=== PATIENT | female | born 1965 | race Caucasian/White ===

== ENCOUNTER 2022-07-15 10:31 | Inpatient (IN) | payer BC, SELFPAY ==
[2022-07-15] VITALS (16 sets, daily range): BP systolic 117–154; BP diastolic 58–85; PULSE 92–127; RESP 16–20; TEMP 36.9–37.1; O2SAT 91–98; BMI 32.8; BMI 34.0
--- NOTE | 2022-07-15 11:15 | HMH.EDGENADL ---
Discharge Plan Disposition Chief Complaint: Shortness of Breath/Dyspnea Discharge ED Provider: Usama Rachel General Adult HPI General Chief complaint: Shortness of Breath/Dyspnea Stated complaint: feet and stomach swelling,can't eat Time Seen by Provider: 07/15/22 11:05 Mode of Arrival: Ambulatory Source of Information: Patient Limitations: No Limitations Description of Symptoms (Recalled from ER Triage Doc. by RN): Pt c/o increased SOA (especially with excertion), abd swelling, umbilical hernia, and BLE swelling that has all been progressing for quite some time . History of Present Illness HPI narrative: Patient presents today complaining principally of generalized swelling including abdominal distention. She states this has been ongoing for several months however is gotten worse over the last few days and was at work today and became too fatigued and short of air due to the swelling. She complains of abdominal discomfort as well as back discomfort. Pt. describes symptoms as moderate and without exacerbating or alleviating factors. Is been no fever no new cough she is a smoker. She also drinks daily and estimates approximate 1/5 of alcohol intake per day. Related Data Home Medications Medication Instructions Recorded Confirmed No Known Home Medications 07/15/22 07/15/22 Allergies Allergy/AdvReac Type Severity Reaction Status Date / Time No Known Allergies [facility] Ver[facility] 07/15/22 10:57 [facility] Social History Smoking Status: Current every day smoker alcohol intake: current current occupational status: employed Travel in the last 8 weeks: None ROS Obtained: Yes All systems reviewed & no additional complaints except as documented Constitutional Constitutional: Reports system reviewed and no additional complaints, except as documented Cardiovascular Cardiovascular: Reports system reviewed and no additional complaints, except as documented and Reports dyspnea Respiratory Respiratory: Reports cough and Reports dyspnea Gastrointestinal Gastrointestingal: Reports system reviewed and no additional complaints, except as documented Neurologic Neurologic: Reports system reviewed and no additional complaints, except as documented Physical Exam General General appearance: alert and in no apparent distress Head Head exam: atraumatic Eye Eye exam: Present jaundice ENT ENT exam: Present normal exam Neck Neck exam: Present normal inspection Chest Chest inspection: Present normal inspection Respiratory Respiratory exam: Present other (Mildly labored respirations) Cardiovascular Cardiovascular exam: Present normal rhythm and tachycardia Abdominal Exam Abdominal exam: Present soft and distention; Absent tenderness Back Exam Back exam: Present normal inspection Neurological Exam Neurological exam: Present alert and oriented X3 Skin Skin exam: Present warm and dry Lymphatic Lymphatic Findings: no adenopathy Medical Decision Making Medical Records Medical records reviewed: Yes I reviewed the patient's medical records. Pan Inquiry Pt receiving controlled substance: Yes Pan was queried for this patient: Yes Risks and benefits of using a controlled substance: were discussed with pt by me Vital Signs: 07/15/22 10:32 07/15/22 11:01 07/15/22 12:30 Temperature 98.4 F Temperature Source Oral Pulse Rate 126 H 112 H Pulse Rate [Right Radial] 127 H Respiratory Rate 20 20 Blood Pressure 119/68 127/74 Blood Pressure [Left Arm] 131/73 Blood Pressure Mean 85 86 Blood Pressure Mean [Left Arm] 92 Blood Pressure Source [Left Arm] Automatic Cuff Blood Pressure Position [Left Arm] Sitting 02 Sat by Pulse Oximetry 92 L 91 L 92 L Oxygen Delivery Method Room Air Nasal Cannula Oxygen Flow Rate (LPM) 2 07/15/22 13:00 07/15/22 13:30 07/15/22 14:00 Temperature Temperature Source Pulse Rate 92 H 96 H 124 H Pulse Rate [Right Radial]
--- NOTE | 2022-07-15 11:29 | PC.NURSE ---
pt up to the bathroom
--- NOTE | 2022-07-15 11:40 | PC.NURSE ---
pt returned from bathroom ,urine sample collected and sent to lab
--- NOTE | 2022-07-15 11:43 | CT_ITS ---
FINAL REPORT CLINICAL HISTORY: swelling FINDINGS: CT OF THE ABDOMEN AND PELVIS WITH CONTRAST Axial CT images of the abdomen and pelvis were obtained after the administration of IV contrast. Coronal reformatted images were also obtained and reviewed.This study was performed with techniques to keep radiation doses as low as reasonably achievable (ALARA). Individualized dose reduction techniques using automated exposure control or adjustment of mA and/or kV according to the patient's size were employed. Abdomen: There is mild atelectasis or scarring in the lung bases. The heart is normal in size. The liver is very heterogeneous. It is uncertain if this represents areas of fatty infiltration or, less likely, an infiltrating mass or masses. There are stones or sludge in the gallbladder with gallbladder wall thickening. The spleen enlarged measuring 14.6 cm in length. No adrenal mass is present. The pancreas has an unremarkable appearance. The kidneys are normal, without evidence of mass or hydronephrosis. The aorta is normal in caliber. There is no adenopathy. There is a moderate amount of ascites. Pelvis: The appendix is normal. There are areas of colonic wall thickening which may represent edema or colitis. There is a small periumbilical hernia containing fluid. There is a moderate amount of ascites in the pelvis. There is a small subserosal calcified uterine fibroid. There is moderate anasarca. The urinary bladder is unremarkable. There is no adenopathy. There is no evidence of bowel obstruction. IMPRESSION: Abnormal liver favoring heterogeneous fatty infiltration over infiltrated mass or masses. If indicated, liver MRI could further evaluate. Moderate ascites and moderate anasarca. Areas of colon wall thickening, edema versus colitis. Stones or sludge within the gallbladder, consider right upper quadrant ultrasound. Splenomegaly. Reviewed, Interpreted and Dictated by Parvez Somers III, MD Transcribed by Malia John Authenticated and [facility]
--- NOTE | 2022-07-15 11:55 | XR_ITS ---
FINAL REPORT CLINICAL HISTORY: SOB FINDINGS: A single view of the chest was obtained. The heart is normal in size. The mediastinum is unremarkable. There are bilateral pulmonary opacities worrisome for bilateral pneumonia. There is no pleural effusion. There is no pneumothorax. There is no acute osseous abnormality. IMPRESSION: Bilateral pulmonary opacities worrisome for bilateral pneumonia. Reviewed, Interpreted and Dictated by Parvez Somers III, MD Transcribed by Lesli Hernandez Authenticated and [facility]
[2022-07-15 12:00] LABS: Chloride 88 mmol/L (98-107); Potassium 4.3 mmoL/L (3.5-5.1); Sodium 136 mmol/L (136-145)
[2022-07-15 12:03] LABS: Alanine Aminotransferase 63 U/L (12-78); Albumin Level 3.3 g/dl (3.5-5.0); Albumin/Globulin Ratio 0.8 (1.1-1.8); Alkaline Phosphatase 268 U/L (38-126); Anion Gap 20.3 mEq/L (5-15); Aspartate Amino Transferase 252 U/L (14-36); Basophils # 0.1 K/mm3 (0-0.2); Bilirubin,Total 10.7 mg/dl (0.2-1.3); Blood Urea Nitrogen 9 mg/dl (7-17); Calcium 7.8 mg/dl (8.4-10.2); Carbon Dioxide 32 mmol/L (22.0-30.0); Creatinine Clearance Estimated 189 mL/min (50-200); Eosinophils # 0.1 K/mm3 (0.0-0.4); Eosinophils % 1.4 % (0.1-12.0); Estimated Glomerular Filt Rate 128 ml/min (>60); GFR (African American) 154 ML/MIN (>60); Glucose 139 mg/dl (74-100); Lymphocytes # 1.1 K/mm3 (0.7-4.5); Lymphocytes % 11.8 % (10-50); Mean Corpuscular HGB Conc 32.4 g/dL (31.8-35.4); Mean Corpuscular Volume 132.4 fl (81-99); Mean Platelet Volume 8.8 fl (7.4-10.4); Monocytes # 0.5 K/mm3 (0.1-1.0); Monocytes % 4.7 % (1.7-9.3); Neutrophils # 7.8 K/mm3 (1.8-7.8); Neutrophils % 81.2 % (37.0-80.0); Platelet Count 159 K/mm3 (142-424); Red Blood Count 2.56 M/mm3 (4.20-5.40); Red Cell Distribution Width 14.3 % (11.5-17.5); Total Protein,Serum 7.3 g/dl (6.3-8.2); White Blood Count 9.6 K/mm3 (4.8-10.8)
[2022-07-15 12:06] LABS: INR 1.39 (0.9-1.1); Prothrombin Time 14.7 seconds (10.1-12.5)
[2022-07-15 12:09] LABS: Microscopic, Urine URINE MICROSCOPIC (MICROSCOPIC)
[2022-07-15 12:11] LABS: Appearance,Urine TURBID (Clear); Blood, Urine Negative (Negative); Glucose,Urine (UA) TRACE (Negative); Ketones,Urine TRACE (Negative); Leukocyte Esterase,Urine TRACE (Negative); Nitrate,Urine POSITIVE (Negative); PH,Urine 5.5 (5.0-8.5); Protein,Urine 1+ (Negative); Urobilinogen,Urine >=8.0 EU/dl (0.2)
[2022-07-15 12:12] LABS: Ammonia 70 umol/L (9-30)
--- NOTE | 2022-07-15 12:15 | PC.NURSE ---
blanket given to pt for blanket
[2022-07-15 12:16] LABS: Bilirubin,Direct 8.1 mg/dl (0.0-0.4); Creatine Kinase MB 0.4 ng/ml (0.0-2.03); Lipase 25 U/L (23-300)
[2022-07-15 12:18] LABS: Troponin I < 0.01 ng/ml (0.00-0.034)
[2022-07-15 12:19] LABS: Bilirubin,Urine 3+ (Negative); Color,Urine AMBER (Yellow)
[2022-07-15 12:28] LABS: Bacteria,Urine 4+ /lpf; RBC,Urine Occasional #/hpf (0-3)
[2022-07-15 12:33] LABS: Coronavirus 19, PCR Not Detected (NotDetected); Influenza A, PCR Not Detected (NotDetected); Influenza B, PCR Not Detected (NotDetected)
--- NOTE | 2022-07-15 13:40 | PC.NURSE ---
pt resting in bed with no complaints at this time.
--- NOTE | 2022-07-15 13:53 | PC.NURSE ---
Pt returning from bathroom at this time.
[2022-07-15 14:16] LABS: Creatine Kinase 42 U/L (30-135)
[2022-07-15 14:46] LABS: Lactic Acid 5.3 mmol/L (0.7-2.1)
[2022-07-15 15:50] LABS: Reflex Lactic Add Lactic Reflex
--- NOTE | 2022-07-15 15:51 | PC.NURSE ---
[facility] called, they requested images be power shared and then would return call
--- NOTE | 2022-07-15 16:19 | PC.NURSE ---
Dr Rachel speaking with [facility]
[2022-07-15 16:27] LABS: Lactic Acid Follow Up (RFLX 1) 4.6 mmol/L (0.7-2.1)
--- NOTE | 2022-07-15 16:30 | PC.NURSE ---
aware of lactic
--- NOTE | 2022-07-15 16:31 | PC.NURSE ---
[facility] called for transfer, they are to call back
--- NOTE | 2022-07-15 16:32 | PC.NURSE ---
[facility] placed pt on waiting list
--- NOTE | 2022-07-15 16:51 | PC.NURSE ---
[facility] put pt on waiting list also.
[2022-07-15 18:05] LABS: Reflex Lactic (2 hrs) Add Lactic Reflex
--- NOTE | 2022-07-15 18:08 | PC.NURSE ---
Dr Rachel speaking with Dr Masterson
--- NOTE | 2022-07-15 18:12 | PC.NURSE ---
transmission supervisor called for admission
--- NOTE | 2022-07-15 18:28 | PC.NURSE ---
Attempted to call report to 2nd floor. Spoke with Liz Mijares. Was told that they will have to call back.
--- NOTE | 2022-07-15 18:54 | PC.NURSE ---
Called report to Liz Mijares
[2022-07-15 18:59] LABS: Lactic Acid Follow up (RFLX 2) 3.5 mmol/L (0.7-2.1)
--- NOTE | 2022-07-15 19:12 | PC.NURSE ---
Pt still in ED, report given to Estela Causey RN.
--- NOTE | 2022-07-15 19:46 | PC.NURSE ---
PT ARRIVED TO FLOOR VIA WHEELCHAIR AT THIS TIME
[2022-07-16] VITALS (12 sets, daily range): BP systolic 117–143; BP diastolic 66–77; PULSE 94–124; RESP 17–20; TEMP 36.4–37.1; O2SAT 91–99; BMI 34.0
--- NOTE | 2022-07-16 06:07 | PC.NURSE ---
pt has rested since arriving to floor, was placed on 2L NC while resting with O2 sats 91-95%, rhonchi and wheezing heard on auscultation, pt does desat with exertion, pt has also been tachy t/o shift with HR 100-110, no complaints of SOA, pt has complained of pain in her back, home medication locked in drawer
--- NOTE | 2022-07-16 07:42 | EXP.PHA.VTE ---
[facility] Pharmacy VTE Monitoring Patient Demographics Admission date: 07/15/22 Report Date: 07/16/22 Time: 07:42 Patient Allergies No Known Allergies Allergy (Verified 07/15/22 20:14) Height: 1.7 m Weight: 98.458 kg Current Active Problems (Updated 07/15/22 @ 20:39 by Bharati Causey RN) Pneumonia (Acute) VTE Risk Labs: VTE Related Lab Results Hgb 11.0 g/dL (12.2-16.2) L 07/15/22 11:20 Hct 34.0 % (37.0-47.0) L 07/15/22 11:20 Plt Count 159 K/mm3 (142-424) 07/15/22 11:20 PT 14.7 seconds (10.1-12.5) H 07/15/22 11:20 INR 1.39 (0.9-1.1) H 07/15/22 11:20 BUN 9 mg/dl (7-17) 07/15/22 11:20 Creatinine 0.50 mg/dl (0.52-1.04) L 07/15/22 11:20 Estimated Creat Clear 189 mL/min (50-200) 07/15/22 11:20 VTE Score: 8 VTE Risk Level: Moderate Risk Clinical Trial Participant: No Prophylaxis VTE Prophylaxis Ordered?: Yes Types of VTE Prophylaxis: TEDS Knee High
--- NOTE | 2022-07-16 07:43 | HMH.PHAINT1 ---
Pharmacy Intervention Comments: HOME MEDICATION LIST (SUBUTEX DOSE) VERIFIED USING OUTPATIENT PHARMACY LIST AND CARLA REPORT
--- NOTE | 2022-07-16 08:49 | EXP.HP ---
History of Present Illness *Admission Date: 07/15/22 *Reason for visit:: Abdominal pain *History of present illness: Ms. Graham is a 56-year-old female who has not been feeling well for the last several months. She is continuing to work. 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 She was also experiencing shortness of breath. Patient was fatigued as well. She has a periodic cough. She denies having any other upper respiratory symptoms and fever. She experiences some constipation. She has had nausea with occasional vomiting and on a daily basis. She has noticed some hematemesis and blood in her stool. With evaluation in the emergency room she was noted to be afebrile. She was tachycardic. With an increase of 10 point to 810.7. AST elevated at 252 with an alkaline phosphatase of 268. Lactate was also elevated at 5.3 and is down to 4.6. Ammonia was elevated at 70. She did receive a liter of fluids in the ER. She was started on Rocephin IV and given morphine for pain and Zofran for her nausea. CT of the abdomen/pelvis revealed the following: IMPRESSION: Abnormal liver favoring heterogeneous fatty infiltration over infiltrated mass or masses.? If indicated, liver MRI could further evaluate.? ? Moderate ascites and moderate anasarca. Areas of colon wall thickening, edema versus colitis.? ? Stones or sludge within the gallbladder, consider right upper quadrant ultrasound.? Splenomegaly. Chest x-ray revealed the following: IMPRESSION: Bilateral pulmonary opacities worrisome for bilateral pneumonia. This a.m. patient's main complaint is back pain. States she is somewhat short of breath. She denies chest pain. She is not nauseated at present.. This a.m. labs show a lactate of 3.5. [facility] Medical History (Updated 07/16/22 @ 09:22 by Eliz Yoon APRN) Congestive heart failure COPD (chronic obstructive pulmonary disease) Hypertension Surgical History Hx of tubal ligation Family History (Updated 07/15/22 @ 20:39 by Bharati Causey RN) No significant family history Social History (Updated 07/15/22 @ 20:41 by Bharati Causey RN) Smoking Status: Current every day smoker alcohol intake: current current occupational status: employed Travel in the last 8 weeks: None Review of Systems Constitutional Constitutional: Reports fever(s), Reports frequent falls, Reports headache(s) and Reports poor appetite Eyes Eyes: Reports change in vision ENT Ears, Nose, Mouth, and Throat: Denies otalgia, Denies epistaxis, Reports headache(s) and Denies sore throat *Cardiovascular Cardiovascular: Reports dyspnea, Reports edema and Reports rapid heart rate *Respiratory Respiratory: Reports chest congestion, Reports cough, Reports dyspnea and Denies hemoptysis *Gastrointestinal Gastrointestinal: Reports abdominal pain, Reports hematemesis, Reports hematochezia, Reports nausea and Reports vomiting *Genitourinary Genitourinary: Denies difficulty voiding *Musculoskeletal Musculoskeletal: Reports abnormal gait (Sometimes has to use a walker) and Reports arthralgias *Neurologic Neurologic: Reports abnormal gait (Sometimes has to use a walker), Reports frequent falls, Reports headache(s) and Denies seizure-like activity Meds Home Medications and Allergies Home Medications Medication Instructions Recorded Confirmed Type buprenorphine HCl 8 mg sublingual 18 mg sublingual DAILY drug 07/15/22 07/16/22 History tablet addiction New Prescriptions to Start Prescriptions: Allergies Allergy/AdvReac Type Severity Reaction Status Date / Time No Known Allergies Allergy Verified 07/15/22 20:14 Exam Data for Last 24 hours Vital signs and Labs for Last 24 Hours: Temp Pulse Resp BP Pulse Ox 98.7 F 118 H 17 130/73 99 07/16/22 07:54 07/16/22 07:54 07/16/22 07:54 07/16/22 07:54 07/16/22 07:54
--- NOTE | 2022-07-16 09:25 | US_ITS ---
FINAL REPORT CLINICAL HISTORY: elevated bili; ascites; cirrhosis FINDINGS: Sonographic images of the right upper quadrant were obtained. The pancreas is partially obscured.The liver is somewhat enlarged at 18 cm in length. The liver has a coarsened echotexture that may represent cirrhosis.The gallbladder contains a large amount of sludge with wall thickening and a small amount of Barbara cholecystic fluid.There is no evidence of biliary ductal dilatation.The common duct measures 3 mm. Limited images of the right kidney are unremarkable. There is a moderate amount of ascites in the abdomen and pelvis. IMPRESSION: Large amount of sludge in a wall thickened gallbladder with a small amount of pericholecystic fluid. Moderate ascites. Somewhat enlarged liver with possible cirrhosis. Reviewed, Interpreted and Dictated by Parvez Somers III, MD Transcribed by Luis Enrique Christie Authenticated and . [facility]
--- NOTE | 2022-07-16 11:13 | PC.NURSE ---
Called [facility] to let them know needed sputum
--- NOTE | 2022-07-16 11:44 | PC.NURSE ---
late entry. morning rounds relayed to md that patient subutex order was for 18mg. patient states she was only wanting to take 4mg of it. states she had been weaning down at home and taking 4mg twice a day. md placed order for 8mg tablet. relayed to him patient refusing to take whole tablet. he is aware. patient took the 4mg.
--- NOTE | 2022-07-16 13:09 | PC.NURSE ---
Spoke with DAJA JOLLY from Dr. Gillespie office about pain medication for pt. She is stating that she is having pain in her back and her stomach. Stated that she would call me back once she speaks with the doctor.
--- NOTE | 2022-07-16 14:56 | PC.NURSE ---
Pt is A/Ox4. She has been wither laying in the bed or sitting on the side of the bed all day. She has been tolerating her clear liquid diet well. She complained about her stomach and her back hurting. I called Dr. Masterson and spoke with DAJA waiting for return call.
[2022-07-17] VITALS (13 sets, daily range): BP systolic 122–152; BP diastolic 49–85; PULSE 100–129; RESP 17–18; TEMP 36.6–37.6; O2SAT 86–96; BMI 34.3
--- NOTE | 2022-07-17 04:30 | PC.NURSE ---
Addendum entered by Hanny Asher RN 07/17/22 06:57: PT HAS HAD TWO EPISODES OF INCONTINENCE THIS SHIFT. Original Note: SPOKE WITH TRANSFER CENTER AND GAVE AN UPDATE ON PT. STATED THAT THEY STILL DO NOT HAVE A BED FOR PT AND CANNOT GIVE AN ESTIMATE ON WHEN ONE WOULD BE AVAILABLE.
[2022-07-17 06:47] LABS: MANUAL DIFFERENTIAL MANUAL DIFFERENTIAL (MANUAL DIFF)
[2022-07-17 06:48] LABS: Basophils # 0.1 K/mm3 (0-0.2); Eosinophils # 0.2 K/mm3 (0.0-0.4); Eosinophils % 1.9 % (0.1-12.0); Hematocrit 30.1 % (37.0-47.0); Lymphocytes # 0.8 K/mm3 (0.7-4.5); Lymphocytes % 9.6 % (10-50); Mean Corpuscular HGB Conc 33.2 g/dL (31.8-35.4); Mean Corpuscular Volume 132.3 fl (81-99); Mean Platelet Volume 8.1 fl (7.4-10.4); Monocytes # 0.4 K/mm3 (0.1-1.0); Monocytes % 4.7 % (1.7-9.3); Neutrophils # 7.2 K/mm3 (1.8-7.8); Neutrophils % 82.9 % (37.0-80.0); Platelet Count 162 K/mm3 (142-424); Red Blood Count 2.27 M/mm3 (4.20-5.40); Red Cell Distribution Width 14.3 % (11.5-17.5); White Blood Count 8.7 K/mm3 (4.8-10.8)
[2022-07-17 07:09] LABS: Ammonia 65 umol/L (9-30)
[2022-07-17 07:10] LABS: Alanine Aminotransferase 58 U/L (12-78); Albumin Level 2.7 g/dl (3.5-5.0); Albumin/Globulin Ratio 0.8 (1.1-1.8); Alkaline Phosphatase 227 U/L (38-126); Anion Gap 10.1 mEq/L (5-15); Aspartate Amino Transferase 191 U/L (14-36); Bilirubin,Total 10.6 mg/dl (0.2-1.3); Blood Urea Nitrogen 12 mg/dl (7-17); Calcium 7.8 mg/dl (8.4-10.2); Carbon Dioxide 40 mmol/L (22.0-30.0); Chloride 88 mmol/L (98-107); Creatinine Clearance Estimated 246 mL/min (50-200); Estimated Glomerular Filt Rate 165 ml/min (>60); GFR (African American) 200 ML/MIN (>60); Globulin 3.6 g/dL (1.3-3.2); Glucose 107 mg/dl (74-100); Potassium 4.1 mmoL/L (3.5-5.1); Sodium 134 mmol/L (136-145); Total Protein,Serum 6.3 g/dl (6.3-8.2)
[2022-07-17 07:30] LABS: Eosinophils % 2 % (0-3); Lymphocytes % 14 % (10-50); Monocytes % 5 % (2-9); Neutrophils % 79 % (42-76); Platelet Estimate Normal; Total Cells Counted 100
[2022-07-17 07:31] LABS: Hypochromasia 1+; Macrocytosis 1+
--- NOTE | 2022-07-17 09:09 | EXP.ACUTE.PN ---
Subjective *Date: 07/17/22 *Time: 09:09 Interval history: Patient is not feeling well this morning. She still has shortness of breath and is having pain in her back and her abdomen. She states she cannot get comfortable in the bed. Medical Exam Vital signs and Labs for Last 24 Hours: Temp Pulse Resp BP Pulse Ox 99.7 F H 123 H 18 133/82 96 07/17/22 08:00 07/17/22 08:00 07/17/22 04:00 07/17/22 08:00 07/17/22 08:30 Laboratory Results - last 24 hr 07/15/22 12:05: Urine Color Darshana, Urine Appearance Turbid, Urine pH 5.5, Ur Specific Mccormick 1.020, Urine Protein 1+, Urine Glucose (UA) Trace, Urine Ketones Trace, Urine Blood Negative, Urine Nitrate Positive, Urine Bilirubin 3+ A, Urine Urobilinogen >=8.0, Ur Leukocyte Esterase Trace, Urine RBC Occasional, Urine WBC 3-5, Ur Squamous Epith Cells 3-5, Urine Bacteria 4+ 07/17/22 06:40: WBC 8.7, RBC 2.27 L, Hgb 10.0 L, Hct 30.1 L, MCV 132.3 H, MCH 44.0 H*, MCHC 33.2, RDW 14.3, Plt Count 162, MPV 8.1, Neut % (Auto) 82.9 H, Lymph % (Auto) 9.6 L, Beltrami % (Auto) 4.7, Eos % (Auto) 1.9, Baso % (Auto) 1.0, Neut # (Auto) 7.2, Lymph # (Auto) 0.8, Beltrami # (Auto) 0.4, Eos # (Auto) 0.2, Baso # (Auto) 0.1, Total Counted 100, Neutrophils % (Manual) 79 H, Lymphocytes % (Manual) 14, Monocytes % (Manual) 5, Eosinophils % (Manual) 2, Platelet Estimate Normal, Hypochromasia 1+, Macrocytosis 1+ 07/17/22 06:40: Sodium 134 L, Potassium 4.1, Chloride 88 L, Carbon Dioxide 40 H, Anion Gap 10.1, BUN 12 D, Creatinine 0.40 L, Estimated Creat Clear 246, Estimated GFR 165, Est GFR ( Amer) 200 D, Glucose 107 H, Calcium 7.8 L, Total Bilirubin 10.6 H*, AST 191 H, ALT 58, Alkaline Phosphatase 227 H, Total Protein 6.3, Albumin 2.7 L, Globulin 3.6 H, Albumin/Globulin Ratio 0.8 L 07/17/22 06:40: Ammonia 65 H I & O for Labs for Last 24 Hours: Intake & Output 07/14/22 07/15/22 07/16/22 07/17/22 11:59 11:59 11:59 11:59 Intake Total 1070 / 1070 600 / 600 Output Total 0 / 0 0 / 0 Balance 1070 / 1070 600 / 600 Weight 210 lb 217 lb 1 oz 218 lb 11.177 oz Microbiology Reports for the Last 24 Hours: Microbiology 07/15/22 12:05 Urethra Urine Culture - Preliminary Gram Negative Rods Constitutional: Present no acute distress Respiratory: Present rales, rhonchi and wheezes Cardiac: Present Reg Rate and Rhythm GI: Present soft, distention and tenderness; Absent guarding or rebound Extremities: Absent edema Skin: Present intact Assessment and Plan *Assessment and plan (1) Ascites: Status: Acute Category: Medical Code(s): R18.8 - Other ascites (2) Liver failure: Status: Acute Category: Medical Code(s): K72.90 - Hepatic failure, unspecified without coma (3) Urinary tract infection: Status: Acute Category: Medical Code(s): N39.0 - Urinary tract infection, site not specified (4) Pneumonia: Status: Acute Category: Medical Code(s): J18.9 - Pneumonia, unspecified organism (5) History of CHF (congestive heart failure): Status: Chronic Category: Medical Code(s): Z86.79 - Personal history of other diseases of the circulatory system (6) Hypertension: Status: Chronic Category: Medical Code(s): I10 - Essential (primary) hypertension (7) COPD (chronic obstructive pulmonary disease): Status: Chronic Category: Medical Code(s): J44.9 - Chronic obstructive pulmonary disease, unspecified Plan Patient's lactic acid has decreased, but is still elevated. Her total bilirubin is about the same at 10.6. Her ammonia level has decreased only slightly to 65. Her abdominal ultrasound shows a large amount of sludge and a wall thickened gallbladder with a small amount of pericholecystic fluid. There is moderate ascites and somewhat enlarged liver with possible cirrhosis. She is still awaiting transfer to . Will discuss further care with Dr. Masterson.
--- NOTE | 2022-07-17 14:44 | PC.NURSE ---
received call from capacity command center. Update provided. No bed available at this time.
--- NOTE | 2022-07-17 18:46 | PC.NURSE ---
shift summary: Pt has done well this shift. GCS 15. CIWA 0. Serax not given today. Has had 3 episodes of diarrhea today. Tolerating clear liquids. Denies pain, dyspnea, n/v/d. Gets OOB with assistance. Bed alarm present. Sinus tach on tele. On 4L NC cont.
[2022-07-18] VITALS (10 sets, daily range): BP systolic 96–146; BP diastolic 49–101; PULSE 66–128; RESP 18–26; TEMP 36.3–37.2; O2SAT 74–100; BMI 34.3
--- NOTE | 2022-07-18 05:01 | PC.NURSE ---
pt has rested well this shift. has had loose watery diarrhea X3. o2 sats have been in the 90s on 4L O2 NC. pt has been out of bed with assistance. c/o pain x1 this shift, medicated per mar with favorable results. sinus tach on tele. CB in reach, bed alarm on and functioning.
[2022-07-18 08:21] LABS: Ammonia 46 umol/L (9-30)
[2022-07-18 08:22] LABS: Alanine Aminotransferase 57 U/L (12-78); Albumin Level 2.7 g/dl (3.5-5.0); Albumin/Globulin Ratio 0.8 (1.1-1.8); Alkaline Phosphatase 217 U/L (38-126); Anion Gap 10.1 mEq/L (5-15); Aspartate Amino Transferase 175 U/L (14-36); Bilirubin,Total 10.9 mg/dl (0.2-1.3); Blood Urea Nitrogen 11 mg/dl (7-17); Calcium 7.9 mg/dl (8.4-10.2); Carbon Dioxide 39 mmol/L (22.0-30.0); Chloride 88 mmol/L (98-107); Creatinine Clearance Estimated 197 mL/min (50-200); Estimated Glomerular Filt Rate 128 ml/min (>60); GFR (African American) 154 ML/MIN (>60); Globulin 3.6 g/dL (1.3-3.2); Glucose 107 mg/dl (74-100); Potassium 4.1 mmoL/L (3.5-5.1); Sodium 133 mmol/L (136-145); Total Protein,Serum 6.3 g/dl (6.3-8.2)
--- NOTE | 2022-07-18 08:51 | EXP.ACUTE.PN ---
Subjective *Date: 07/18/22 *Time: 08:51 Interval history: Patient states she does not feel well this morning. Her back hurts and her stomach hurts. She states she is very thirsty. She has not been sleeping well. Medical Exam Vital signs and Labs for Last 24 Hours: Temp Pulse Resp BP Pulse Ox 98.6 F 118 H 19 107/67 L 98 07/18/22 04:00 07/18/22 08:00 07/18/22 04:00 07/18/22 04:00 07/18/22 06:20 Laboratory Results - last 24 hr 07/18/22 08:05: Sodium 133 L, Potassium 4.1, Chloride 88 L, Carbon Dioxide 39 H, Anion Gap 10.1, BUN 11, Creatinine 0.50 L D, Estimated Creat Clear 197, Estimated GFR 128, Est GFR ( Amer) 154 D, Glucose 107 H, Calcium 7.9 L, Total Bilirubin 10.9 H*, AST 175 H, ALT 57, Alkaline Phosphatase 217 H, Total Protein 6.3, Albumin 2.7 L, Globulin 3.6 H, Albumin/Globulin Ratio 0.8 L I & O for Labs for Last 24 Hours: Intake & Output 07/15/22 07/16/22 07/17/22 07/18/22 11:59 11:59 11:59 11:59 Intake Total 1070 / 1070 600 / 600 540 / 540 Output Total 0 / 0 0 / 0 0 / 0 Balance 1070 / 1070 600 / 600 540 / 540 Weight 210 lb 217 lb 1 oz 218 lb 11.177 oz 218 lb 14.775 oz Microbiology Reports for the Last 24 Hours: Microbiology 07/15/22 12:05 Urethra Urine Culture - Final Klebsiella pneumoniae 07/16/22 23:12 Sputum - Expectorated Sputum Gram Stain - Final 07/15/22 11:20 Blood Blood Culture - Preliminary NO GROWTH AFTER 48 HOURS 07/15/22 11:20 Blood Blood Culture - Preliminary NO GROWTH AFTER 48 HOURS Constitutional: Present no acute distress Respiratory: Present rhonchi and wheezes Cardiac: Present Reg Rate and Rhythm GI: Present distention, tenderness and normal bowel sounds; Absent guarding Extremities: Present edema Skin: Present jaundice Assessment and Plan *Assessment and plan (1) Ascites: Status: Acute Category: Medical Code(s): R18.8 - Other ascites (2) Liver failure: Status: Acute Category: Medical Code(s): K72.90 - Hepatic failure, unspecified without coma (3) Urinary tract infection: Status: Acute Category: Medical Code(s): N39.0 - Urinary tract infection, site not specified (4) Pneumonia: Status: Acute Category: Medical Code(s): J18.9 - Pneumonia, unspecified organism (5) History of CHF (congestive heart failure): Status: Chronic Category: Medical Code(s): Z86.79 - Personal history of other diseases of the circulatory system (6) Hypertension: Status: Chronic Category: Medical Code(s): I10 - Essential (primary) hypertension (7) COPD (chronic obstructive pulmonary disease): Status: Chronic Category: Medical Code(s): J44.9 - Chronic obstructive pulmonary disease, unspecified Plan Patient's bilirubin is continuing to elevate. We are still awaiting a bed at for transfer.
--- NOTE | 2022-07-18 10:40 | DIET.NUTRFU ---
RD reviewed chart secondary to continues on clear liquids x3 days. Patient continues to complain about her stomach hurting and having loose stools. Dx of ascites with liver failure secondary to EtOH use. AST has improved from 252 to 175 and alkaline phosphate form 268-217, bilirubin has gone from 10.4 to 10.9. She is receiving lactulose, ABT and aldactone. Based on EtOH withdrawal would recommend thiamine and vitamin C supplements- consulted case mgt to review vitamin needs with doctor. She is waiting for transfer to [facility]
--- NOTE | 2022-07-18 14:24 | PC.NURSE ---
rounded on patient patient resting soundly in bed. breathing treatment was in place. call light within reach bed alarm on.
--- NOTE | 2022-07-18 16:52 | EXP.DC.SUM ---
General Admission date:: 07/15/22 Discharge date: 07/18/22 HPI HPI HPI: Ms. Graham is a 56-year-old female who has not been feeling well for the last several months. She is continuing to work. 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 She was also experiencing shortness of breath. Patient was fatigued as well. She has a periodic cough. She denies having any other upper respiratory symptoms and fever. She experiences some constipation. She has had nausea with occasional vomiting and on a daily basis. She has noticed some hematemesis and blood in her stool. With evaluation in the emergency room she was noted to be afebrile. She was tachycardic. With an increase in bilirubin of 10 to 10.7. AST elevated at 252 with an alkaline phosphatase of 268. Lactate was also elevated at 5.3 and is down to 4.6. Ammonia was elevated at 70. She did receive a liter of fluids in the ER. She was started on Rocephin IV and given morphine for pain and Zofran for her nausea. CT of the abdomen/pelvis revealed the following: IMPRESSION: Abnormal liver favoring heterogeneous fatty infiltration over infiltrated mass or masses.? If indicated, liver MRI could further evaluate.? ? Moderate ascites and moderate anasarca. Areas of colon wall thickening, edema versus colitis.? ? Stones or sludge within the gallbladder, consider right upper quadrant ultrasound.? Splenomegaly. Chest x-ray revealed the following: IMPRESSION: Bilateral pulmonary opacities worrisome for bilateral pneumonia. This a.m. patient's main complaint is back pain. States she is somewhat short of breath. She denies chest pain. She is not nauseated at present.. This a.m. labs show a lactate of 3.5. Hospital Course Hospital Course Hospital Course: The patient was started on lactulose and a right upper quadrant ultrasound was ordered. She was continued on IV fluids and antibiotics pending her culture results. Duo nebs were also added. She continued to feel poorly and had shortness of breath along with pain in her back and her abdomen. She could not get comfortable. Her lactic acid decreased slightly but was still elevated. Her bilirubin remained stable for a day and then began to increase. Her ammonia level only decreased slightly. Her abdominal ultrasound showed a large amount of sludge and a wall thickened gallbladder with a small amount of pericholecystic fluid. There was moderate ascites and a somewhat enlarged liver with possible cirrhosis. Her urine culture was growing gram-negative rods, therefore Levaquin was added. By 07/18/2022 she was still not feeling well and having pain. Her bilirubin was not improving. Her urine grew Klebsiella pneumoniae. was contacted and stated they would not have a bed for some time. [facility] was therefore contacted and Dr. Masterson spoke with the hospitalist Dr. Faith. He excepted the patient on transfer and Dr. Ortega will be consulted of GI. Exam Data for Last 24 hours Vital signs and Labs for Last 24 Hours: Temp Pulse Resp BP Pulse Ox 97.4 F L 82 18 146/72 H 92 L 07/18/22 12:00 07/18/22 13:30 07/18/22 12:00 07/18/22 12:00 07/18/22 13:30 Laboratory Results - last 24 hr 07/18/22 08:05: Sodium 133 L, Potassium 4.1, Chloride 88 L, Carbon Dioxide 39 H, Anion Gap 10.1, BUN 11, Creatinine 0.50 L D, Estimated Creat Clear 197, Estimated GFR 128, Est GFR ( Amer) 154 D, Glucose 107 H, Calcium 7.9 L, Total Bilirubin 10.9 H*, AST 175 H, ALT 57, Alkaline Phosphatase 217 H, Total Protein 6.3, Albumin 2.7 L, Globulin 3.6 H, Albumin/Globulin Ratio 0.8 L 07/18/22 08:05: Ammonia 46 H I & O for Last 24 hours: Intake & Output 07/16/22 07/17/22 07/18/22 07/19/22 11:59 11:59 11:59 11:59 Intake Total 1070 / 1070 600 / 600 780 / 780 Output Total 0 / 0 0 / 0 0 / 0 Balance 1070 / 1070 600 / 600 780 / 780 Weight 217 lb 1 oz 218 lb 11.177 oz 218 lb 14.775 oz M
--- NOTE | 2022-07-18 19:19 | PC.NURSE ---
PT IS RESTING IN BED. PT HAS BEEN ORIENTED X4 THIS SHIFT HOWEVER PT IS VERY ILL APPEARING AND HAS HAD PERIODS OF BEING LETHARGIC ON AND OFF T/O THE DAY. [facility] CALLED THIS AM AND STATED THEY STILL DID NOT HAVE A BED AVAILABLE. NOTIFIED AND HE STATED CARE MANAGEMENT WAS GOING CALL [facility] [address] TO SEE IF GI WOULD EXCEPT TRANSFER. THE HOSPITALIST FROM [facility] [address] HAS EXCEPTED PT AND SHE WILL BE TRANSFERRED TO ICU 3. REPORT WAS CALLED. AMBULANCE HAS BEEN NOTIFIED. PULSE OXIMETER WAS SWITCHED TO FOREHEAD AND O2 SATURATION MAINTAINED 98-100% ON 3 L NC. LUNG SOUNDS DIMINISHED WITH SCATTERED RHONCHI. SWELLING NOTED TO BLE. PT HAS HAD MULTIPLE LOOSE BOWEL MOVEMENTS THIS SHIFT.
--- NOTE | 2022-07-18 22:37 | PC.NURSE ---
Pt left the floor with EMS at this time.
[2022-07-20 22:05] LABS: Hep A Ab, IgM Negative; Hepatitis B Core Antibody IgM Negative; Hepatitis B Surface Antigen Negative; Hepatitis C Antibody >11.0
== END 2022-07-18 22:37 | disposition short-term general hospital (02) | DRG 178 ==
LOC: ER 11:00 → 2ND 19:48
PROVIDERS: Nurse Practitioner Family; Admitting Provider Family Medicine; Emergency Provider Emergency Medicine; Visit Provider Family Medicine
DX: J15.6 Pneumonia due to other Gram-negative bacteria (principal); J44.0 Chronic obstructive pulmonary disease with (acute) lower respiratory infection; N39.0 Urinary tract infection, site not specified; R18.8 Other ascites; K72.90 Hepatic failure, unspecified without coma; I11.0 Hypertensive heart disease with heart failure; I50.9 Heart failure, unspecified; F17.200 Nicotine dependence, unspecified, uncomplicated; B96.1 Klebsiella pneumoniae [K. pneumoniae] as the cause of diseases classified elsewhere
CPT/HCPCS: 36415; 71045; 74177; 76705; 80053; 80074; 81001; 82140; 82248; 82550; 82553; 83605; 83690; 84484; 85007; 85014; 85018; 85025; 85048; 85049; 85610; 87040; 87070; 87077; 87086; 87088; 87186; 87205; 94640; 94760; 94761; 99285; C9803; J0571; J0696; J1956; J2405; Q9967; U0003; U0005